=== PATIENT | female | born 1970 | race Caucasian/White ===

== ENCOUNTER 2017-07-25 19:51 | Emergency (ER) | payer OTHER ==
[~2017-07-25] VITALS: Ht 162.6 cm; Wt 52.8 kg
[2017-07-25 19:52] VITALS: BP 101/65
== END 2017-07-25 21:23 | disposition home or self-care (01) ==
LOC: ED 21:06
DX: L50.9 Urticaria, unspecified (principal)
CPT/HCPCS: 99282